=== PATIENT | male | born 1980 | race Caucasian/White ===

== ENCOUNTER → 2018-12-02 11:00 | Outpatient (CLI) | payer OTHER, SELFPAY ==
[2017-12-18 13:27] VITALS: BMI 32.3
--- NOTE | 2018-12-02 11:06 | RAD_ITS ---
STUDY: X-RAY - ABDOMEN/PELVIS REASON FOR EXAM: Male, 38 years old. Abdominal pain. TECHNIQUE: AP supine and upright views of the abdomen and pelvis. COMPARISON: None. FINDINGS: Normal visualized lung bases. There is an unremarkable bowel gas pattern. Air and feces are seen throughout a nondistended colon. There is no small bowel dilatation. There is no demonstrated free abdominal air. The visualized liver, spleen and kidneys are grossly normal in size and morphology. There is no evidence of organomegaly or suspicious calcifications. Normal soft tissue structures. Normal visualized osseous structures. RAD/Abd Inc Decub and/or Erect IMPRESSION: Normal x-ray examination of the abdomen and pelvis. Electronically Signed: Rip Aguirre DO at 19:57 EST Tel [phone], Service support ,
[2018-12-02 12:56] LABS: Absolute Lymphocyte Count 2.78 X10^3/ul (0.83-4.51); Absolute Neutrophil Count 5.6 X10^3/uL (2.0-7.7); Basophil# 0.04 X10^3/uL; Basophil% 0.4 % (0-1); Eosinophils% 1.1 % (0-5); Hematocrit 47.4 % (40-54); Hemoglobin 15.7 g/dl (13.0-16.5); Lymphocyte # 2.78 X10^3/ul (4.0); Lymphocyte % 30.3 % (19-41); Mean Corp Hgb Conc 33.1 g/gl (32-36); Mean Corpuscular Volume 84.5 fL (80-94); Mean Platelet Vol. 9.7 fl (6.2-12.0); Monocyte# 0.71 X10^3/uL; Monocyte% 7.7 % (0-10); Neutrophil # 5.55 X10^3/uL (2.7-7.7); Neutrophil % 60.4 % (47-70); Platelet Count 320 K/mm3 (150-450); RBC Distribution Width CV 13.5 % (11.6-14.6); RBC Distribution Width SD 41.3 fl (35.1-43.9); Red Blood Count 5.61 M/mm3 (4.6-6.2); White Blood Count 9.2 K/mm3 (4.4-11.0)
[2018-12-02 12:58] LABS: POSITIVE COUNT NO; POSITIVE DIFFERENTIAL NO; POSITIVE MORPHOLOGY NO
[2018-12-02 13:03] LABS: ALB/GLOB Ratio 1.2 RATIO (0.9-2.4); AST(SGOT) 16 U/L (15-37); Alanine Aminotransfer ALT/SGPT 47 U/L (16-61); Albumin, Serum 4.3 g/dL (3.2-5.0); Alkaline Phosphatase 65 U/L (45-117); Anion Gap 9 (5-15); BUN 20 mg/dL (7-18); BUN/Creat Ratio 20.9 RATIO (10-20); Calcium,Total 9.7 mg/dL (8.5-10.1); Chloride 107 mmol/L (98-107); Creatinine, Serum 0.96 mg/dL (0.70-1.30); EST Glomerular Filtration Rate 93 mL/min (>60); Est Glom Filt Rate - Afr Amer 112 mL/min (>60); Globulin 3.5 g/dL (2.2-4.2); Glucose 95 mg/dL (74-106); Potassium 4.5 mmol/L (3.5-5.1); Protein, Total 7.8 g/dL (6.4-8.2); Sodium Level 142 mmol/L (136-145)
== END ==
PROVIDERS: Family Provider Family Medicine; PCP Family Medicine; Referring Provider Family Medicine; Visit Provider Family Medicine
DX: R10.9 Unspecified abdominal pain (principal)
CPT/HCPCS: 36415; 74019; 80053; 85025

== ENCOUNTER → 2018-12-13 09:20 | Outpatient (CLI) | payer OTHER, SELFPAY ==
[2018-12-13 08:33] VITALS: BMI 31.9
[2018-12-13 10:17] LABS: AST(SGOT) 13 U/L (15-37); Alanine Aminotransfer ALT/SGPT 38 U/L (16-61); Albumin, Serum 4.2 g/dL (3.2-5.0); Alkaline Phosphatase 63 U/L (45-117); Bilirubin, Direct 0.14 mg/dL (0.00-0.30); Cholesterol 166 mg/dL (200); Globulin 3.5 g/dL (2.2-4.2); High Density Lipoprotein 40 mg/dL; Protein, Total 7.7 g/dL (6.4-8.2); Triglycerides 112 mg/dL; Very Low Density Lipoprotein 22 mg/dL (5-40)
== END ==
PROVIDERS: Family Provider Family Medicine; PCP Family Medicine; Referring Provider Internal Medicine Cardiovascular Disease; Visit Provider Internal Medicine Cardiovascular Disease
DX: I45.6 Pre-excitation syndrome (principal); I48.0 Paroxysmal atrial fibrillation; I10 Essential (primary) hypertension
CPT/HCPCS: 36415; 80061; 80076

== ENCOUNTER → 2020-12-03 07:54 | Outpatient (CLI) | payer OTHER, SELFPAY ==
[2019-12-16 09:24] VITALS: BMI 31.2
[2020-12-03 10:23] LABS: Hematocrit 46.8 % (40-54); Hemoglobin 15.2 g/dL (13.0-16.5); Mean Corp Hgb Conc 32.5 g/dL (32-36); Mean Corpuscular Hgb 27.4 pg (27.0-32.0); Mean Corpuscular Volume 84.5 fL (80-94); Mean Platelet Vol. 10.7 fl (6.2-12.0); Platelet Count 233 K/mm3 (150-450); RBC Distribution Width CV 13.6 % (11.6-14.6); RBC Distribution Width SD 42.7 fl (35.1-43.9); Red Blood Count 5.54 M/mm3 (4.6-6.2); White Blood Count 8.7 K/mm3 (4.4-11.0)
[2020-12-03 10:50] LABS: Anion Gap 10 (5-15); BUN 19 mg/dL (7-18); BUN/Creat Ratio 18.1 RATIO (10-20); Calcium,Total 9.2 mg/dL (8.5-10.1); Chloride 105 mmol/L (98-107); Creatinine, Serum 1.05 mg/dL (0.70-1.30); EST Glomerular Filtration Rate 82 mL/min (>60); Est Glom Filt Rate - Afr Amer 100 mL/min (>60); Glucose 109 mg/dL (74-106); Sodium Level 142 mmol/L (136-145); Thyroid Stim Hormone (TSH) 1.64 uIU/mL (0.358-3.74)
== END ==
PROVIDERS: PCP Family Medicine; Referring Provider Family Medicine; Visit Provider Family Medicine
DX: N52.9 Male erectile dysfunction, unspecified (principal)
CPT/HCPCS: 36415; 80048; 84403; 84443; 85027

== ENCOUNTER → 2021-01-25 09:18 | Outpatient (CLI) | payer SELFPAY ==
[2021-01-25 08:38] VITALS: BMI 32.1
== END ==
PROVIDERS: PCP Family Medicine; Referring Provider Family Medicine; Visit Provider Family Medicine
DX: R79.89 Other specified abnormal findings of blood chemistry (principal)
CPT/HCPCS: 36415; 84402; 84403

== ENCOUNTER → 2021-02-15 11:08 | Outpatient (CLI) | payer OTHER, SELFPAY ==
[2021-01-25 08:38] VITALS: BMI 32.1
[2021-02-22 15:07] LABS: Testosterone Free 12.3 pg/mL (6.8-21.5)
== END ==
PROVIDERS: PCP Family Medicine; Referring Provider Family Medicine; Visit Provider Family Medicine
DX: R79.89 Other specified abnormal findings of blood chemistry (principal)
CPT/HCPCS: 36415; 84402; 84403

== ENCOUNTER → 2022-01-27 | Outpatient (CLI) | payer OTHER, SELFPAY ==
[2022-01-27 10:10] LABS: Hematocrit 45.8 % (40-54); Hemoglobin 15.8 g/dL (13.0-16.5); Mean Corp Hgb Conc 34.5 g/dL (32-36); Mean Corpuscular Hgb 28.7 pg (27.0-32.0); Mean Corpuscular Volume 83.3 fL (80-94); Mean Platelet Vol. 9.8 fl (6.2-12.0); Platelet Count 277 K/mm3 (150-450); RBC Distribution Width CV 13.3 % (11.6-14.6); RBC Distribution Width SD 40.9 fl (35.1-43.9); White Blood Count 7.7 K/mm3 (4.4-11.0)
[2022-01-27 10:28] LABS: ALB/GLOB Ratio 1.1 RATIO (0.9-2.4); AST(SGOT) 17 U/L (15-37); Alanine Aminotransfer ALT/SGPT 53 U/L (16-61); Albumin, Serum 4.1 g/dL (3.2-5.0); Alkaline Phosphatase 56 U/L (45-117); Anion Gap 5 (5-15); BUN 29 mg/dL (7-18); BUN/Creat Ratio 28.4 RATIO (10-20); Calcium,Total 9.3 mg/dL (8.5-10.1); Chloride 109 mmol/L (98-107); Cholesterol 207 mg/dL (200); Creatinine, Serum 1.02 mg/dL (0.70-1.30); EST Glomerular Filtration Rate 85 mL/min (>60); Est Glom Filt Rate - Afr Amer 102 mL/min (>60); Globulin 3.6 g/dL (2.2-4.2); Glucose 106 mg/dL (74-106); High Density Lipoprotein 41 mg/dL; Potassium 4.1 mmol/L (3.5-5.1); Protein, Total 7.7 g/dL (6.4-8.2); Sodium Level 139 mmol/L (136-145); Triglycerides 210 mg/dL; Very Low Density Lipoprotein 42 mg/dL (5-40)
== END | disposition home or self-care (01) ==
PROVIDERS: PCP Family Medicine; Referring Provider Nurse Practitioner Family; Visit Provider Nurse Practitioner Family
DX: Z00.00 Encounter for general adult medical examination without abnormal findings (principal)
CPT/HCPCS: 36415; 80053; 80061; 85027

== ENCOUNTER → 2022-10-17 | Outpatient (CLI) | payer BC, SELFPAY | END | disposition home or self-care (01) | PROVIDERS: PCP Family Medicine; Visit Provider Family Medicine | DX: L05.01 Pilonidal cyst with abscess (principal) | CPT/HCPCS: 87070; 87077; 87205 ==

== ENCOUNTER 2022-11-15 19:18 | Observation (INO) | payer BC, SELFPAY ==
[2022-11-15 19:19] VITALS: BP 163/122; PULSE 103; RESP 16; TEMP 36.6; O2SAT 99; BMI 33.0
--- NOTE | 2022-11-15 19:35 | CT_ITS ---
INDICATION: ABD bloating EXAMINATION: CT ABDOMEN AND PELVIS WITH CONTRAST - CT Abdomen And Pelvis W/ Contrast Injection TECHNIQUE: Helically acquired images were obtained of the abdomen and pelvis following IV contrast. A radiation dose optimization technique was used for this scan. IV Contrast dosage and agent: 98 mL Isovue-370 Oral contrast: None. COMPARISON: None. FINDINGS: LOWER CHEST: Lung bases are clear. No cardiomegaly or pericardial effusion. LIVER: Homogeneous. No focal mass. GALLBLADDER AND BILIARY TREE: No calcified gallstones. No gallbladder distension or wall edema. No intra- or extrahepatic biliary ductal dilation. PANCREAS: No focal cystic or solid mass. SPLEEN: Normal size without focal cystic or solid mass. ADRENAL GLANDS: No nodules. KIDNEYS AND URETERS: Normal renal size and position. No hydronephrosis. PERITONEUM: No ascites or free air. No other fluid collection. BOWEL: No evidence of acute appendicitis. Diffuse small bowel distention up to at least 5.4 cm in caliber. Right abdominal transition point candidate (series 2, image 58; series 601, image 37; series 602, image 66). No focal inflammatory change. LYMPH NODES: Innumerable prominent lymph nodes throughout the mesentery. VESSELS: Aorta is non-dilated. URINARY BLADDER: Unremarkable. REPRODUCTIVE ORGANS: No pelvic masses. ABDOMINAL WALL: Small fat-containing umbilical hernia. BONES: Lateral sacroiliac joint arthrosis. CT/Abdomen/Pelvis W IV Cont ONLY IMPRESSION: Small bowel obstruction with transition point candidate in the abdomen. Reactive mesenteric lymph nodes. Electronically Signed: Dario Vazquez MD at 20:19 EST ,
--- NOTE | 2022-11-15 19:37 | EDS_ITS ---
HPI HPI - GI History of Present Illness Chief Complaint: Abd Pain Detail of Chief Complaint: Diarrhea and abdominal bloating. Informant: patient Abdominal Pain/Flank Pain Onset: Today and Yesterday Timing: Intermittent Quality: Cramping Location: Diffuse Current Severity: Mild Maximum Severity: Mild Worsened by: Nothing Relieved by: Nothing Nausea/Vomiting/Emesis GI Symptom: Negative for Nausea or Vomiting Diarrhea/Melena/Hematochezia GI Symptom: Positive for Diarrhea; Negative for Melena or Hematochezia Onset: Today and Yesterday Severity: 5 episodes of diarrhea yesterday and 5 today. Episodes: 5 Narrative Narrative: 42-year-old male recently had a pilonidal cyst removed about 4 weeks ago. He has been on 2 different antibiotics since that time which he recently stopped. Yesterday he had about 5 episodes of what he calls explosive diarrhea and again today. No nausea or vomiting. No fever. No weight change. No melena or hematemesis. No prior abdominal surgeries. He did have a fever as high as 102. This all started yesterday around 1:00. Prior similar symptoms: No Recent Illness/Hospitalization: No PFSH PFSH Medical History (Updated 11/15/22 @ 20:[address] Garrick Christianson MD) Paroxysmal atrial fibrillation Kwdcc-Olzislcim-Geafy (WPW) syndrome Allergy/AdvReac Type Severity Reaction Status Date / Time No Known Allergies Allergy Verified 11/15/22 19:20 Family History Father CAD (coronary artery disease) Myocardial infarction Uncle CAD (coronary artery disease) Hx AICD Surgical History History of tonsillectomy Social History Smoking Status: Former smoker how long ago did patient quit smokin alcohol intake: current alcohol intake frequency: holidays/special occasions only Alcohol type: beer substance use type: does not use caffeine: No what type of physical activity do you participate in: other details: active lifestyle frequency: daily seatbelt use: always do you feel safe at home: Yes ROS ROS ED ROS Narrative Diarrhea. Fever. Constitutional Constitutional ED: Reports fever(s) ENT ENT ED: Denies ear pain Cardiovascular Cardiovascular: Denies chest pain Respiratory/Chest Respiratory/Chest: Denies cough or dyspnea Gastrointestinal Gastrointestinal: Reports diarrhea; Denies abdominal pain, constipation, melena, nausea or vomiting Genitourinary Genitourinary ED: Denies dysuria or hematuria Musculoskeletal Musculoskeletal: Denies arthralgias Integumentary Denies abscess Neurologic Neurologic: Denies headache(s) Psychiatric Psychiatric: Denies anxiety Endocrine Endocrinology: Denies polydipsia Hematologic/Lymphatic Hematologic/Lymphatic: Denies easy bleeding Allergic/Immunologic Allergic/Immunologic ED: Denies mouth swelling or tongue swelling EXAM Physical Exam Narrative Exam Narrative: 22-year-old male no acute distress. Vital signs stable afebrile. Initial blood pressure elevated 163 122 that will be rechecked. He does not look septic or toxic. He is no acute distress. He does not look significantly dehydrated. H EENT exam unremarkable. Moist membranes. Neck nontender lymphadenopathy. Lungs clear to auscultation. Heart regular rhythm rate about 100 no murmur. Abdomen soft nondistended normal bowel sounds no peritoneal signs. No organomegaly or masses. No distention. No signs of obstruction. Both right upper and right lower quadrant unremarkable. No hernias. Having all 4 ex tremities. Nontender no edema. Back nontender. Neurologic exam is normal. Const Vital Signs: 11/15/22 19:19 Temperature 97.8 F Temperature Source Temporal Pulse Rate 103 H Respiratory Rate 16 Blood Pressure 163/122 H Blood Pressure Mean 135 Pulse Ox 99 Oxygen Delivery Method Room Air Positive well nourished, well developed and obese; Negative for cachectic, contractures or unkempt General Appearance ED: well developed and NAD; Negative for unkempt, cachectic, contractures or pallor Nutritional Appearance: obese; Negative for cachectic HEENT Reports moist mucous membranes; Denies dry mucous membranes normocephalic and atraumatic; Negative for trauma or tenderness Mouth ED: No dry mucous membranes Mouth: No dry mucous membranes Eyes EOMs intact bilaterally General Eye ED: Negative for pale conjunctiva or scleral icterus Neck no lymphadenopathy, supple and no JVD General: Negative for tenderness Carotids: Negative for other Lymph Lymphatic: Negative for other Resp normal respiratory effort and clear to auscultation bilaterally Effort and Inspection: Negative for respiratory distress or retractions Auscultation: Negative for rales, rhonchi or wheezes Cardio regular rate, regular rhythm, S1 normal heart sound, S2 normal heart sound and no murmurs Rate: Negative for bradycardia or tachycardic Rhythm: Negative for abnormal rhythm GI non-tender, non-distended and no masses Inspection: Negative for abdominal distention Palpation: soft; Negative for tender, guarding, rigid, hepatomegaly, splenomegaly, hernia, mass, pulsatile mass or rebound tenderness present Back/Spine no CVA tenderness General Back: Negative for CVA tenderness Cervical Spine: Negative for cervical spine tenderness Thoracic Spine / Upper Back: Negative for thoracic spinal tenderness Lumbar Spine / Lower Back: Negative for lumbar spinal tenderness Coccyx: Negative for other Extremity full ROM General Extremety ED: Negative for edema or tenderness General Extremity: Negative for edema Neuro CN's II-XII intact bilaterally and moves all extremities Sensorium / Orientation: alert, oriented to person, oriented to place and oriented to time; Negative for orientation impaired, confused, lethargic or stuporous Motor Exam: strength 5/5 throughout Psych mental status grossly normal and thought process normal Appearance: Negative for unkempt Attitude: No agitated Mood & Affect: Negative for depressed Skin no wounds General Skin Exam: Negative for jaundice or pallor Lesions: no lesions Rashes: no rashes Trauma: Negative for abrasion Nails: Negative for discolored MDM MDM MDM Narrative Medical decision making narrative: 42-year-old male with diarrhea after being on antibiotics for 3 weeks or so. He only had 5 episodes of yesterday and today. Clinically does not sound like C. difficile. Is also had some bloating. CAT scan and labs are being obtained. He did not need anything for pain or nausea. He will be given IV fluids. Repeat exam at 8:45 PM. Patient doing well. Abdomen benign. He has had no nausea or vomiting. He had no diarrhea since been in the emergency department. He has unremarkable labs. He and I went over his CAT scan. I spoke to the general surgeon on-call Dr. Ashely Penaloza. At this time there is nothing she will need to do surgery on. I will speak to the hospitalist about admission and Dr. Penaloza can be involved as a eligibility consultant. Lab Data Attestation: I reviewed the patient's lab results. Lab results narrative: CBC shows white count 9.4. H&H 15.6 and 47. Platelets 255. CAT scan shows a small bowel obstruction as read by the radiologist and reviewed by me. CMP shows a gap of 7. Normal BUN of 18 creatinine of 1. Glucose 118. Liver enzymes normal. Lipase normal at 153. Labs: Laboratory Results - last 24 hr 11/15/22 11/15/22 19:35 19:35 WBC 9.4 RBC 5.55 Hgb 15.6 Hct 47.0 MCV 84.7 MCH 28.1 MCHC 33.2 RDW Std Deviation 41.0 RDW Coeff of Aleksandr 13.3 Plt Count 255 MPV 9.2 Immature Gran % (Auto) 0.300 Neut % (Auto) 68.9 Lymph % (Auto) 19.4 [place] % (Auto) 10.1 H Eos % (Auto) 1.1 Baso % (Auto) 0.2 Absolute Neuts (auto) 6.5 Absolute Lymphs (auto) 1.83 Nucleated RBC % 0 Sodium 141 Potassium 3.9 Chloride 109 H Carbon Dioxide 25.0 Anion Gap 7 BUN 18 Creatinine 1.08 Estim Creat Clear Calc 98.64 Est GFR (MDRD) Af Amer 96 Est GFR (MDRD) Non-Af 79 BUN/Creatinine Ratio 16.7 Glucose 118 H Calcium 9.1 Total Bilirubin 0.60 AST 15 ALT 44 Alkaline Phosphatase 57 Total Protein 7.6 Albumin 3.8 Globulin 3.8 Albumin/Globulin Ratio 1.0 Lipase 153 Radiography Diagnostic Testing: Clinical Impression(s) from Imaging Studies Abdomen/Pelvis CT 11/15/22 19:35 IMPRESSION: Small bowel obstruction with transition point candidate in the abdomen. Reactive mesenteric lymph nodes. Electronically Signed: Dario Vazquez MD at 20:19 EST , Discharge Plan Triage Chief Complaint: Abd Pain ED Provider: Garrick Christianson Dx/Rx/DC Orders Clinical Impression: Partial obstruction of small intestine, Diarrhea, History of Pckvq-Kzcdzofrz-Qtwin (WPW) syndrome Primary Care Provider: Clark Cohen Referrals: Clark Cohen MD [Primary Care Provider] - Disposition Disposition: Acute Care Hospital [facility]
[2022-11-15] MEDS: 0.9% Normal Saline 1,000 ML 1000 ML IV (19:40)
[2022-11-15 19:54] LABS: Absolute Lymphocyte Count 1.83 X10^3/uL (0.83-4.51); Absolute Neutrophil Count 6.5 X10^3/uL (2.0-7.7); Basophil# 0.02 X10^3/uL; Basophil% 0.2 % (0-1); Eosinophils% 1.1 % (0-5); Hemoglobin 15.6 g/dL (13.0-16.5); Lymphocyte # 1.83 X10^3/ul (0.83-4.51); Lymphocyte % 19.4 % (19-41); Mean Corp Hgb Conc 33.2 g/dL (32-36); Mean Corpuscular Hgb 28.1 pg (27.0-32.0); Mean Corpuscular Volume 84.7 fL (80-94); Mean Platelet Vol. 9.2 fl (6.2-12.0); Monocyte# 0.95 X10^3/uL; Monocyte% 10.1 % (0-10); NRBC Flagged by Analyzer 0 % (0-5); Neutrophil # 6.48 X10^3/uL (2.7-7.7); Neutrophil % 68.9 % (47-70); Platelet Count 255 K/mm3 (150-450); RBC Distribution Width CV 13.3 % (11.6-14.6); Red Blood Count 5.55 M/mm3 (4.6-6.2); White Blood Count 9.4 K/mm3 (4.4-11.0)
[2022-11-15 20:28] LABS: AST(SGOT) 15 U/L (15-37); Alanine Aminotransfer ALT/SGPT 44 U/L (16-61); Albumin, Serum 3.8 g/dL (3.2-5.0); Alkaline Phosphatase 57 U/L (45-117); Anion Gap 7 (5-15); BUN 18 mg/dL (7-18); BUN/Creat Ratio 16.7 RATIO (10-20); Calcium,Total 9.1 mg/dL (8.5-10.1); Chloride 109 mmol/L (98-107); Creatinine, Serum 1.08 mg/dL (0.70-1.30); EST Glomerular Filtration Rate 79 mL/min (>60); Est Glom Filt Rate - Afr Amer 96 mL/min (>60); Estimated Creatinine Clearance 98.64 ml/min; Globulin 3.8 g/dL (2.2-4.2); Glucose 118 mg/dL (74-106); Lipase 153 U/L (73-393); Potassium 3.9 mmol/L (3.5-5.1); Protein, Total 7.6 g/dL (6.4-8.2); Sodium Level 141 mmol/L (136-145)
[2022-11-15 21:35] VITALS: BP 133/86; PULSE 78; RESP 18; TEMP 36.7; O2SAT 100
--- NOTE | 2022-11-15 21:41 | PCM.HP.STD ---
[facility] - General General Date of Admission: 11/15/22 Date of Service: 11/15/22 Chief Complaint: Diarrhea HPI Narrative EMILIANO MANN, is a 42 M with a significant history of Kwojq-Srwtsxffi-Fqlrd syndrome status post ablation who presents to the emergency department with diarrhea. The patient reports multiple loose stools yesterday the day before presentation. Associated with symptoms as abdominal bloating, abdominal distention and abdominal pain. He reports diffuse abdominal pain 5 out of 10. The pain is described as dull and aching. The pain is episodic. The pain aggravates with movement and the pain improves with rest. He denies anorexia. Indeed he has good appetite. Patient denies any nausea or vomiting. On the day of presentation he ate breakfast and lunch and was getting ready to prepare dinner before he was urged by family to come to the ED. Because of urging from the family he came to the emergency department for evaluation. Of note patient reports that for 4 days in a row he ate some Guacamole that he bought from [employer]. Of note his daughter also ate same Guacamole and had some mild diarrhea on the day of patient's presentation. However his daughter attributes her diarrhea to food that she ate when she went for bowling. Because CT of abdomen and pelvis showed small bowel obstruction with a transition point emerged department doctor discussed the case with the general surgeon and recommendation was that patient stays at the hospital for further evaluation. [facility] Medical History Paroxysmal atrial fibrillation Dpjls-Dgpbfrvau-Ibqwq (WPW) syndrome Allergy/AdvReac Type Severity Reaction Status Date / Time No Known Allergies Allergy Verified 11/15/22 22:20 Family History Father CAD (coronary artery disease) Myocardial infarction Uncle CAD (coronary artery disease) Hx AICD Surgical History History of tonsillectomy Social History Smoking Status: Former smoker how long ago did patient quit smokin alcohol intake: current alcohol intake frequency: holidays/special occasions only Alcohol type: beer substance use type: does not use caffeine: No what type of physical activity do you participate in: other details: active lifestyle frequency: daily seatbelt use: always do you feel safe at home: Yes ROS ROS Narrative Pertinent positives and pertinent negatives as noted in HPI. All other systems were reviewed and are negative Vital Signs Vital Signs Vital Signs: 11/15/22 19:19 11/15/22 21:35 Temperature 97.8 F 98.0 F Temperature Source Temporal Temporal Pulse Rate 103 H 78 Respiratory Rate 16 18 Blood Pressure 163/122 H 133/86 H Blood Pressure Mean 135 101 Pulse Ox 99 100 Oxygen Delivery Method Room Air Room Air Weight Weight: 113.398 kg Body Mass Index (BMI) 33.0 Physical Exam Narrative Physical exam: General: Well-nourished, well-developed. Head: Normocephalic, atraumatic, no tenderness Eyes: Vision is grossly intact. EOMI ENT, no trauma, moist mucous membranes, no rhinorrhea Neck: Nontender, No thyromegaly. CVS: Regular rate and rhythm. S1-S2 present. No murmur, gallop or rub. Respiratory : clear to auscultation bilaterally, chest wall nontender, no wheezing Abdomen: Soft, nontender, nondistended, normal bowel sounds, no masses : Deferred Back: Nontender, no CVA tenderness, no midline spinal tenderness, deformities, step-offs Extremities: Nontender full range of motion, no trauma Skin: Normal color, no trauma, abrasions Neuro: Alert, oriented, cranial nerves II through XII grossly intact. Psychiatry: Normal mood. Normal affect. Not depressed. Not anxious. Results Lab / Micro Data Result Diagrams: 11/15/22 19:35 11/15/22 19:35 Labs: Laboratory Results - last 24 hr 11/15/22 19:35: WBC 9.4, RBC 5.55, Hgb 15.6, Hct 47.0, MCV 84.7, MCH 28.1, MCHC 33.2, RDW Std Deviation 41.0, RDW Coeff of Aleksandr 13.3, Plt Count 255, MPV 9.2, Immature Gran % (Auto) 0.300, Neut % (Auto) 68.9, Lymph % (Auto) 19.4, [place] % (Auto) 10.1 H, Eos % (Auto) 1.1, Baso % (Auto) 0.2, Absolute Neuts (auto) 6.5, Absolute Lymphs (auto) 1.83, Nucleated RBC % 0 11/15/22 19:35: Sodium 141, Potassium 3.9, Chloride 109 H, Carbon Dioxide 25.0, Anion Gap 7, BUN 18, Creatinine 1.08, Estim Creat Clear Calc 98.64, Est GFR (MDRD) Af Amer 96, Est GFR (MDRD) Non-Af 79, BUN/Creatinine Ratio 16.7, Glucose 118 H, Calcium 9.1, Total Bilirubin 0.60, AST 15, ALT 44, Alkaline Phosphatase 57, Total Protein 7.6, Albumin 3.8, Globulin 3.8, Albumin/Globulin Ratio 1.0, Lipase 153 Radiology Impression Abdomen/Pelvis CT 11/15/22 19:35 IMPRESSION: Small bowel obstruction with transition point candidate in the abdomen. Reactive mesenteric lymph nodes. Electronically Signed: Dario Vazquez MD at 20:19 EST , Assessment & Plan Assessment/Plan (1) Partial obstruction of small intestine: (2) Diarrhea: (3) Essential hypertension: PLAN: Plan Partial small obstruction CT of abdomen pelvis was independently interpreted. I agree with with radiologist interpretation of small bowel distention. Also in addition radiologist reports a transition point for obstruction. Patient with normal white count. Mild monocytosis. BMP is not impressive. Supportive treatment with IV fluids. Patient with no nausea or vomiting. However we will keep patient n.p.o. General surgery consult. Trend CBC and BMP. Enteritis Likely secondary to food poisoning. Supportive treatment with IV fluids as above. Essential hypertension Blood pressure is not within goal. Not on any home medication. Trend blood pressures. DVT prophylaxis: SCDs ordered. Charges/Coding Visit Charges Inpatient E&M: 74139 Init Hosp L2
[2022-11-15 22:19] VITALS: BP 148/96; PULSE 76; RESP 16; TEMP 37.3; O2SAT 98
[2022-11-15 22:21] VITALS: BMI 33.0
[2022-11-15] MEDS: 0.9% Saline Lock 10 ML Syringe IV (23:22)
[2022-11-15] MEDS: 0.9% Normal Saline 1,000 ML 75 ML IV (23:23)
[2022-11-16 03:19] VITALS: BP 131/76; PULSE 75; RESP 18; TEMP 36.8; O2SAT 97
[2022-11-16 06:07] LABS: Absolute Lymphocyte Count 1.87 X10^3/uL (0.83-4.51); Absolute Neutrophil Count 5.1 X10^3/uL (2.0-7.7); Basophil# 0.02 X10^3/uL; Basophil% 0.2 % (0-1); Eosinophil# 0.08 X10^3/uL; Hematocrit 43.4 % (40-54); Hemoglobin 14.6 g/dL (13.0-16.5); Lymphocyte # 1.87 X10^3/ul (0.83-4.51); Lymphocyte % 22.9 % (19-41); Mean Corp Hgb Conc 33.6 g/dL (32-36); Mean Corpuscular Hgb 28.3 pg (27.0-32.0); Mean Corpuscular Volume 84.1 fL (80-94); Monocyte% 13.5 % (0-10); NRBC Flagged by Analyzer 0 % (0-5); Neutrophil # 5.08 X10^3/uL (2.7-7.7); Neutrophil % 62.2 % (47-70); Platelet Count 230 K/mm3 (150-450); RBC Distribution Width CV 13.4 % (11.6-14.6); RBC Distribution Width SD 41.9 fl (35.1-43.9); Red Blood Count 5.16 M/mm3 (4.6-6.2); White Blood Count 8.2 K/mm3 (4.4-11.0)
[2022-11-16 06:33] LABS: Anion Gap 6 (5-15); BUN 14 mg/dL (7-18); BUN/Creat Ratio 14.9 RATIO (10-20); Calcium,Total 8.9 mg/dL (8.5-10.1); Chloride 109 mmol/L (98-107); Creatinine, Serum 0.94 mg/dL (0.70-1.30); EST Glomerular Filtration Rate 93 mL/min (>60); Est Glom Filt Rate - Afr Amer 112 mL/min (>60); Estimated Creatinine Clearance 113.33 ml/min; Glucose 108 mg/dL (74-106); Potassium 3.9 mmol/L (3.5-5.1); Sodium Level 141 mmol/L (136-145)
[2022-11-16 08:02] VITALS: BP 146/84; PULSE 76; RESP 18; TEMP 37.3; O2SAT 96
--- NOTE | 2022-11-16 09:43 | CON.PCM.SX_ITS ---
Assessment & Plan Assessment/Plan (1) Partial obstruction of small intestine: PLAN: see below (2) Diarrhea: PLAN: see below PLAN: Plan Patient clinically does not have bowel obstruction, suspect food poisoning I have recommended IV hydration and liquid diet until symptoms resolved Patient wishes to go home and have symptoms resolve at home. I have counseled patient to return to hospital/clinic if worsening signs/symptoms. Patient will be discharged home by hospitalist service HPI Consult Data Date of Consult: 11/16/22 HPI Narrative Reason for Consultation: abdominal pain HPI Narrative: I was asked to see patient for Dr. Rufino Schwartz in consultation for this patient with abdominal pain EMILIANO MANN, is a 42 M who presents abdominal pain for about a day. He also has noted multiple bouts of diarrhea - loose watery stools. He does remember eating guacamole that he purchased at a local store. He denies nausea/emesis. He presented with a normal WBC and LFTs to the [facility] ED. He was found on CT scan to have possible small bowel obstruction with distended proximal loops of small bowel. He states that he has been passing flatus and he has minimal abdominal pain this morning. [facility] Medical History Paroxysmal atrial fibrillation Qqutf-Qdzfbrtbm-Bmjgu (WPW) syndrome Allergy/AdvReac Type Severity Reaction Status Date / Time No Known Allergies Allergy Verified 11/15/22 22:20 Family History Father CAD (coronary artery disease) Myocardial infarction Uncle CAD (coronary artery disease) Hx AICD Surgical History History of tonsillectomy Social History Smoking Status: Former smoker how long ago did patient quit smokin alcohol intake: current alcohol intake frequency: holidays/special occasions only Alcohol type: beer substance use type: does not use caffeine: No what type of physical activity do you participate in: other details: active lifestyle frequency: daily seatbelt use: always do you feel safe at home: Yes ROS Constitutional Constitutional: Denies fever(s) Eyes Eyes: Denies blurry vision Cardiovascular Cardiovascular: Denies chest pain at rest Respiratory/Chest Respiratory/Chest: Denies shortness of breath at rest Gastrointestinal Gastrointestinal: Reports diarrhea Musculoskeletal Musculoskeletal: Denies abnormal gait Integumentary Integumentary: Denies jaundice Neurologic Neurologic: Denies focal weakness Physical Exam Const alert and oriented x3 General Appearance: cooperative HEENT normocephalic Eyes conjunctivae normal Neck supple Resp normal respiratory effort Effort and Inspection: able to speak in complete sentences GI GI Narrative: abdomen is soft and benign Extremity normal to inspection Medical Records Data Attestation: I reviewed the patient's medical records Lab / Micro Data Attestation: I reviewed the patient's lab results. Result Diagrams: 11/16/22 05:33 11/16/22 05:33 Labs: Laboratory Results - last 24 hr 11/15/22 19:35: WBC 9.4, RBC 5.55, Hgb 15.6, Hct 47.0, MCV 84.7, MCH 28.1, MCHC 33.2, RDW Std Deviation 41.0, RDW Coeff of Aleksandr 13.3, Plt Count 255, MPV 9.2, Immature Gran % (Auto) 0.300, Neut % (Auto) 68.9, Lymph % (Auto) 19.4, [place] % (Auto) 10.1 H, Eos % (Auto) 1.1, Baso % (Auto) 0.2, Absolute Neuts (auto) 6.5, Absolute Lymphs (auto) 1.83, Nucleated RBC % 0 11/15/22 19:35: Sodium 141, Potassium 3.9, Chloride 109 H, Carbon Dioxide 25.0, Anion Gap 7, BUN 18, Creatinine 1.08, Estim Creat Clear Calc 98.64, Est GFR (MDRD) Af Amer 96, Est GFR (MDRD) Non-Af 79, BUN/Creatinine Ratio 16.7, Glucose 118 H, Calcium 9.1, Total Bilirubin 0.60, AST 15, ALT 44, Alkaline Phosphatase 57, Total Protein 7.6, Albumin 3.8, Globulin 3.8, Albumin/Globulin Ratio 1.0, Lipase 153 11/16/22 05:33: WBC 8.2, RBC 5.16, Hgb 14.6, Hct 43.4, MCV 84.1, MCH 28.3, MCHC 33.6, RDW Std Deviation 41.9, RDW Coeff of Aleksandr 13.4, Plt Count 230, MPV 9.0, Immature Gran % (Auto) 0.200, Neut % (Auto) 62.2, Lymph % (Auto) 22.9, [place] % (Auto) 13.5 H, Eos % (Auto) 1.0, Baso % (Auto) 0.2, Absolute Neuts (auto) 5.1, Absolute Lymphs (auto) 1.87, Nucleated RBC % 0 11/16/22 05:33: Sodium 141, Potassium 3.9, Chloride 109 H, Carbon Dioxide 26.0, Anion Gap 6, BUN 14, Creatinine 0.94, Estim Creat Clear Calc 113.33, Est GFR (MDRD) Af Amer 112, Est GFR (MDRD) Non-Af 93, BUN/Creatinine Ratio 14.9, Glucose 108 H, Calcium 8.9 Radiology Impression Abdomen/Pelvis CT 11/15/22 19:35 IMPRESSION: Small bowel obstruction with transition point candidate in the abdomen. Reactive mesenteric lymph nodes. Electronically Signed: Dario Vazquez MD at 20:19 EST , ADDENDUM: 11/15/222201 IMPRESSION: undefined
--- NOTE | 2022-11-16 09:59 | DCINST_ITS ---
Discharge Instructions Diet Discharge Diet: No restrictions Activity Discharge Activity: Return to Normal Activity Weight Bearing Status: Full weight bearing Follow Up Care Test Results: Test results from this visit will be discussed in further detail at your follow- up appointment, if applicable. Discharge Plan Admission Admit Date/Time: 11/15/22 21:41 Primary Reason for Your Visit: gastroenteritis Attending Provider: Rufino Schwartz Primary Care Provider: Clark Cohen Consulting Providers: Pool Shea ; Ashely Penaloza Discharge Orders/Prescriptions Referrals / Follow Up: Clark Cohen MD [Primary Care Provider] - Within 2 Weeks Disposition Disposition (needs filled in before D/C Order can be placed): Home, Self Care
--- NOTE | 2022-11-16 10:07 | PCM.DC.SUM ---
Providers Date of Admission: 11/15/22 Date of Discharge: 11/16/22 Primary Care Physician: Dr. Clark Cohen MD Consultations 11/15/22 22:12 Consult: General Surgery Routine Consulting Provider: Ashely Penaloza Reason for Consult: Possible sbo EMERGENT Consult: No MD Notified: Yes Date Notified: 11/16/22 Time Notified: 08:08 Method of Notification: Verbal Reason For Visit: ANTIBIOTIC INTOLERANCE Diagnosis Discharge Diagnosis (1) Partial obstruction of small intestine: Status: Acute Code(s): K56.600 - Partial intestinal obstruction, unspecified as to cause (2) Diarrhea: Status: Acute Code(s): R19.7 - Diarrhea, unspecified (3) Essential hypertension: Status: Acute Code(s): I10 - Essential (primary) hypertension Plan 1. Possible viral gastroenteritis versus food poisoning #2 essential hypertension #3 Lpkjj-Qowcksjqt-Djccj syndrome Small bowel obstruction was ruled out Hospital Course Operations None Procedures None Summary of Care Provided Minutes Spent on Discharge: 31 Hospital Course: This 42-year-old white male was seen in the emergency room at [facility] with a chief complaint of diarrhea x24 hours, patient also complained of abdominal bloating distention and generalized abdominal pain. CT of the abdomen pelvis was obtained in the ER which showed a possible small bowel obstruction, general surgery was contacted and this case was discussed with them, patient was admitted to [place] [address] and given IV fluids, patient's symptomology improved during his hospital stay and he was seen by general surgery on 11/16/2022 and felt to be stable for discharge home. It was felt by surgery that the patient possibly had food poisoning. On 11/16/2022, patient was seen and examined: On examination he appeared in good health and spirits. Vital signs as documented. Skin warm and dry and without overt rashes. Neck without JVD, neck was supple, trachea midline, thyroid was normal. Lungs clear bilaterally, normal air movement was noted. Heart exam notable for regular rhythm, normal sounds and absence of murmurs, rubs or gallops. Abdomen unremarkable and without evidence of organomegaly, masses, or abdominal aortic enlargement. Bowel sounds are present, abdomen is not distended. Extremities nonedematous, no cyanosis was noted, no clubbing was noted. Neuro: Cranial nerves II through XII are grossly intact, no focal motor deficits were noted, sensation to light touch and pinprick intact, motor exam 5/5 throughout. Psych: Patient is alert and oriented x3, he does not appear anxious or depressed, he does not appear agitated. Patient appears stable for discharge home on 11/16/2022 in stable condition. Weight / BMI Weight Weight: 113.8 kg Body Mass Index (BMI) 33.0 ABG / Lab / Microbiology Data Result Diagrams: 11/16/22 05:33 11/16/22 05:33 Laboratory: Laboratory Results - last 24 hr 11/15/22 19:35: WBC 9.4, RBC 5.55, Hgb 15.6, Hct 47.0, MCV 84.7, MCH 28.1, MCHC 33.2, RDW Std Deviation 41.0, RDW Coeff of Aleksandr 13.3, Plt Count 255, MPV 9.2, Immature Gran % (Auto) 0.300, Neut % (Auto) 68.9, Lymph % (Auto) 19.4, Nash % (Auto) 10.1 H, Eos % (Auto) 1.1, Baso % (Auto) 0.2, Absolute Neuts (auto) 6.5, Absolute Lymphs (auto) 1.83, Nucleated RBC % 0 11/15/22 19:35: Sodium 141, Potassium 3.9, Chloride 109 H, Carbon Dioxide 25.0, Anion Gap 7, BUN 18, Creatinine 1.08, Estim Creat Clear Calc 98.64, Est GFR (MDRD) Af Amer 96, Est GFR (MDRD) Non-Af 79, BUN/Creatinine Ratio 16.7, Glucose 118 H, Calcium 9.1, Total Bilirubin 0.60, AST 15, ALT 44, Alkaline Phosphatase 57, Total Protein 7.6, Albumin 3.8, Globulin 3.8, Albumin/Globulin Ratio 1.0, Lipase 153 11/16/22 05:33: WBC 8.2, RBC 5.16, Hgb 14.6, Hct 43.4, MCV 84.1, MCH 28.3, MCHC 33.6, RDW Std Deviation 41.9, RDW Coeff of Aleksandr 13.4, Plt Count 230, MPV 9.0, Immature Gran % (Auto) 0.200, Neut % (Auto) 62.2, Lymph % (Auto) 22.9, Nash % (Auto) 13.5 H, Eos % (Auto) 1.0, Baso % (Auto) 0.2, Absolute Neuts (auto) 5.1, Absolute Lymphs (auto) 1.87, Nucleated RBC % 0 11/16/22 05:33: Sodium 141, Potassium 3.9, Chloride 109 H, Carbon Dioxide 26.0, Anion Gap 6, BUN 14, Creatinine 0.94, Estim Creat Clear Calc 113.33, Est GFR (MDRD) Af Amer 112, Est GFR (MDRD) Non-Af 93, BUN/Creatinine Ratio 14.9, Glucose 108 H, Calcium 8.9 Radiography Diagnostic Testing: Radiology Impression Abdomen/Pelvis CT 11/15/22 19:35 IMPRESSION: Small bowel obstruction with transition point candidate in the abdomen. Reactive mesenteric lymph nodes. Electronically Signed: Dario Vazquez MD at 20:19 EST Reading Location ID and State: [facility] / [place] Tel , Service support , ADDENDUM: 11/15/222201 IMPRESSION: undefined D/C Instructions Discharge Diet: No restrictions Weight Bearing Status: Full weight bearing Meaningful Use Info Meaningful Use Diagnoses (Choose all that apply): None applicable Discharge Plan Admission Admit Date/Time: 11/15/22 21:41 Primary Reason for Your Visit: gastroenteritis Attending Provider: Rufino Schwartz Primary Care Provider: Clark Cohen Consulting Providers: Pool Shea ; Ashely Penaloza Discharge Orders/Prescriptions Referrals / Follow Up: Clark Cohen MD [Primary Care Provider] - Within 2 Weeks Disposition Disposition (needs filled in before D/C Order can be placed): Home, Self Care Charges/Coding Visit Charges Inpatient E&M: 84352 Disch Hosp >30min
== END 2022-11-16 10:33 | disposition home or self-care (01) ==
LOC: ED 20:48 → MS3 22:09
PROVIDERS: Admitting Provider Hospitalist; Emergency Provider Emergency Medicine; PCP Family Medicine; Visit Provider Internal Medicine
DX: R19.7 Diarrhea, unspecified (principal); I48.0 Paroxysmal atrial fibrillation; Z87.891 Personal history of nicotine dependence; I10 Essential (primary) hypertension; I45.6 Pre-excitation syndrome
CPT/HCPCS: 36415; 74177; 80048; 80053; 83690; 85025; 96360; 96361; 99221; 99284; J7030; Q9967; A4216; G0378

== ENCOUNTER → 2023-01-19 | Outpatient (CLI) | payer BC, SELFPAY ==
[2023-01-19 10:19] LABS: Hematocrit 47.1 % (40-54); Hemoglobin 15.8 g/dL (13.0-16.5); Mean Corp Hgb Conc 33.5 g/dL (32-36); Mean Corpuscular Hgb 28.4 pg (27.0-32.0); Mean Corpuscular Volume 84.6 fL (80-94); Platelet Count 282 K/mm3 (150-450); RBC Distribution Width CV 13.9 % (11.6-14.6); RBC Distribution Width SD 42.9 fl (35.1-43.9); Red Blood Count 5.57 M/mm3 (4.6-6.2); White Blood Count 8.1 K/mm3 (4.4-11.0)
[2023-01-19 10:33] LABS: Anion Gap 3 (5-15); BUN 26 mg/dL (7-18); BUN/Creat Ratio 23.2 RATIO (10-20); Calcium,Total 9.4 mg/dL (8.5-10.1); Chloride 108 mmol/L (98-107); Cholesterol 210 mg/dL (200); Creatinine, Serum 1.12 mg/dL (0.70-1.30); EST Glomerular Filtration Rate 76 mL/min (>60); Est Glom Filt Rate - Afr Amer 92 mL/min (>60); Glucose 104 mg/dL (74-106); High Density Lipoprotein 50 mg/dL; Potassium 4.1 mmol/L (3.5-5.1); Sodium Level 135 mmol/L (136-145); Triglycerides 125 mg/dL; Very Low Density Lipoprotein 25 mg/dL (5-40)
== END | disposition home or self-care (01) ==
LOC: MFPLAB 08:49
PROVIDERS: PCP Family Medicine; Visit Provider Family Medicine
DX: Z00.00 Encounter for general adult medical examination without abnormal findings (principal); Z13.1 Encounter for screening for diabetes mellitus; Z13.220 Encounter for screening for lipoid disorders; V70.0XXA Driver of bus injured in collision with pedestrian or animal in nontraffic accident, initial encounter
CPT/HCPCS: 36415; 80048; 80061; 85027

== ENCOUNTER → 2023-11-05 | Outpatient (CLI) | payer BC, SELFPAY ==
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
[2023-11-05 16:25] LABS: Absolute Lymphocyte Count 2.37 X10^3/uL (0.83-4.51); Absolute Neutrophil Count 5.7 X10^3/uL (2.0-7.7); Basophil# 0.05 X10^3/uL; Basophil% 0.6 % (0-1); Eosinophil# 0.14 X10^3/uL; Eosinophils% 1.6 % (0-5); Hematocrit 45.3 % (40-54); Hemoglobin 14.9 g/dL (13.0-16.5); Lymphocyte # 2.37 X10^3/ul (0.83-4.51); Lymphocyte % 26.5 % (19-41); Mean Corp Hgb Conc 32.9 g/dL (32-36); Mean Corpuscular Hgb 27.7 pg (27.0-32.0); Mean Corpuscular Volume 84.4 fL (80-94); Mean Platelet Vol. 10.2 fl (6.2-12.0); Monocyte# 0.61 X10^3/uL; Monocyte% 6.8 % (0-10); NRBC Flagged by Analyzer 0 % (0-5); Neutrophil # 5.74 X10^3/uL (2.7-7.7); Neutrophil % 64.3 % (47-70); Platelet Count 275 K/mm3 (150-450); RBC Distribution Width CV 13.5 % (11.6-14.6); RBC Distribution Width SD 41.6 fl (35.1-43.9); Red Blood Count 5.37 M/mm3 (4.6-6.2); White Blood Count 8.9 K/mm3 (4.4-11.0)
[2023-11-05 16:37] LABS: ALB/GLOB Ratio 1.1 RATIO (0.9-2.4); AST(SGOT) 18 U/L (15-37); Alanine Aminotransfer ALT/SGPT 40 U/L (16-61); Alkaline Phosphatase 62 U/L (45-117); Anion Gap 4 (5-15); BUN 21 mg/dL (7-18); BUN/Creat Ratio 21.5 RATIO (10-20); Calcium,Total 9.2 mg/dL (8.5-10.1); Chloride 108 mmol/L (98-107); Cholesterol 200 mg/dL (200); Creatinine, Serum 0.98 mg/dL (0.70-1.30); EST Glomerular Filtration Rate 88 mL/min (>60); Est Glom Filt Rate - Afr Amer 107 mL/min (>60); Globulin 3.5 g/dL (2.2-4.2); Glucose 86 mg/dL (74-106); High Density Lipoprotein 40 mg/dL; PSA,Total - Annual Screen 1.61 ng/mL (0.00-4.00); Potassium 4.1 mmol/L (3.5-5.1); Protein, Total 7.5 g/dL (6.4-8.2); Sodium Level 136 mmol/L (136-145); Triglycerides 167 mg/dL; Very Low Density Lipoprotein 33 mg/dL (5-40)
[2023-11-05 16:42] LABS: Rubella IgG Reactive (Nonreactive)
[2023-11-07 06:12] LABS: Mumps Antibody,IgG 18.9 AU/mL (Immune >10.9); Rubeola IgG Ab > 300.0 AU/mL (Immune >16.4); V-Zoster IgG (Immunity) 1203 index (Immune >165)
== END | disposition home or self-care (01) ==
LOC: MTLAB 12:59
PROVIDERS: PCP Family Medicine; Referring Provider Family Medicine; Visit Provider Family Medicine
DX: Z00.00 Encounter for general adult medical examination without abnormal findings (principal); I10 Essential (primary) hypertension; Z12.5 Encounter for screening for malignant neoplasm of prostate
CPT/HCPCS: 36415; 80053; 80061; 84153; 85025; 86735; 86762; 86765; 86787; G0103

== ENCOUNTER → 2024-03-01 | Outpatient (CLI) | payer BC, SELFPAY ==
--- NOTE | 2024-03-01 07:39 | CT_ITS ---
HISTORY: Left lung nodule. TECHNIQUE: Helically acquired images were obtained of the chest without contrast. A radiation dose optimization technique was used for this scan. 888 images. COMPARISON: CT abdomen 11/15/2022. FINDINGS: LARGE AIRWAYS: Patent. LUNGS: 3 mm perifissural nodules in the right lung on image 58/136. 3 mm left lower lobe nodule posteriorly on image 100. Stable 6 mm left lower lobe juxtapleural oval nodule just above the diaphragm on image 98. PLEURA: No pneumothorax or significant pleural effusion. HEART/PERICARDIUM: Heart within normal limits in size with mild coronary artery calcification. No pericardial effusion. VESSELS: Thoracic aorta nondilated. MEDIASTINUM/JEROD: No pathologically enlarged adenopathy. UPPER ABDOMEN: Unremarkable. BONES: Intact. CT/Chest without Contrast IMPRESSION: No significant interval change in size of 6 mm left lower lobe pulmonary nodule just above the diaphragm. 3 mm bilateral pulmonary nodules. Consider optional [address] follow-up. Electronically Signed: Susie Sanderson MD at 9:03 EDT ,
[2024-03-01 10:14] LABS: Anion Gap 6 (5-15); BUN 21 mg/dL (7-18); BUN/Creat Ratio 19.1 RATIO (10-20); Calcium,Total 9.6 mg/dL (8.5-10.1); Chloride 105 mmol/L (98-107); EST Glomerular Filtration Rate 77 mL/min (>60); Est Glom Filt Rate - Afr Amer 93 mL/min (>60); Glucose 103 mg/dL (74-106); Potassium 3.6 mmol/L (3.5-5.1); Sodium Level 137 mmol/L (136-145)
== END | disposition home or self-care (01) ==
PROVIDERS: PCP Family Medicine; Referring Provider Nurse Practitioner Gerontology; Visit Provider Nurse Practitioner Gerontology
DX: R91.1 Solitary pulmonary nodule (principal); I10 Essential (primary) hypertension
CPT/HCPCS: 36415; 71250; 80048

== ENCOUNTER 2024-06-04 13:49 | Emergency (ER) | payer BC, SELFPAY ==
[2024-06-04 13:51] VITALS: BP 144/86; PULSE 84; RESP 15; TEMP 36.4; O2SAT 99; BMI 33.6
--- NOTE | 2024-06-04 14:34 | RAD_ITS ---
STUDY: X-RAY CHEST REASON FOR EXAM: Male, 43 years old. Pain TECHNIQUE: PA and lateral views of the chest. COMPARISON: None. FINDINGS: The lungs are clear and expanded. There is no demonstrated pleural abnormality. Normal size heart. Normal mediastinum and kavita. Normal visualized pulmonary arteries. Normal visualized aortic arch and descending thoracic aorta. Normal visualized thoracic spine. Normal visualized ribs, clavicles, and shoulders. There is no demonstrated abnormality of the visualized soft tissue structures of the upper abdomen. RAD/Chest PA and Lateral IMPRESSION: Normal x-ray examination of the chest. Electronically Signed: Crispin Perez MD at 15:42 EDT ,
--- NOTE | 2024-06-04 14:34 | EKG12_ITS ---
Test Reason : CP Blood Pressure : / mmHG Vent. Rate : 083 BPM Atrial Rate : 083 BPM P-R Int : 212 ms QRS Dur : 096 ms QT Int : 374 ms P-R-T Axes : 021 008 025 degrees QTc Int : 439 ms Sinus rhythm with 1st degree A-V block with occasional Premature ventricular complexes Otherwise normal ECG Confirmed by GUILLE PUCKETT, OVIDIO ([id number]), editor map BOB COBB ([id number]) on 06/07/2024 8:11:17 AM Referred By: NILS/KANDIS Confirmed By:OVIDIO HAN MD
[2024-06-04 14:45] LABS: Absolute Lymphocyte Count 1.66 X10^3/uL (0.83-4.51); Absolute Neutrophil Count 7.7 X10^3/uL (2.0-7.7); Basophil# 0.03 X10^3/uL; Basophil% 0.3 % (0-1); Eosinophil# 0.05 X10^3/uL; Eosinophils% 0.5 % (0-5); Hematocrit 44.8 % (40-54); Lymphocyte # 1.66 X10^3/ul (0.83-4.51); Lymphocyte % 16.4 % (19-41); Mean Corp Hgb Conc 33.5 g/dL (32-36); Mean Corpuscular Hgb 27.9 pg (27.0-32.0); Mean Corpuscular Volume 83.4 fL (80-94); Mean Platelet Vol. 9.3 fl (6.2-12.0); Monocyte# 0.61 X10^3/uL; NRBC Flagged by Analyzer 0 % (0-5); Neutrophil # 7.73 X10^3/uL (2.7-7.7); Neutrophil % 76.5 % (47-70); Platelet Count 281 K/mm3 (150-450); RBC Distribution Width CV 13.8 % (11.6-14.6); RBC Distribution Width SD 41.8 fl (35.1-43.9); Red Blood Count 5.37 M/mm3 (4.6-6.2); White Blood Count 10.1 K/mm3 (4.4-11.0)
[2024-06-04 15:01] LABS: Anion Gap 5 (5-15); BUN 21 mg/dL (7-18); BUN/Creat Ratio 20.2 RATIO (10-20); Calcium,Total 9.4 mg/dL (8.5-10.1); Chloride 112 mmol/L (98-107); Creatinine, Serum 1.04 mg/dL (0.70-1.30); EST Glomerular Filtration Rate 82 mL/min (>60); Est Glom Filt Rate - Afr Amer 99 mL/min (>60); Estimated Creatinine Clearance 119.52 ml/min; Glucose 96 mg/dL (74-106); Sodium Level 141 mmol/L (136-145); Troponin-I HS 11 pg/mL (3.0-78.0)
[2024-06-04 15:50] VITALS: BP 151/90; PULSE 18; RESP 16; O2SAT 97
--- NOTE | 2024-06-04 16:15 | EDS_ITS ---
HPI History of Present Illness Chief Complaint: Palpitations Informant: patient Onset/Context/Timing Onset: Today Activity at onset: sudden Timing: Intermittent and Lasts (Less than 10 seconds) Quality: Positive for Burning Location: Left Parasternal Worsened By: Exertion Relieved By: Nothing Associated Symptoms: Positive for Lightheadedness and Acid Reflux; Negative for Nausea, Vomiting, Diaphoresis, Dyspnea, Cough, Fever or Palpitations Narrative Narrative: Patient presents with chest pain that began today. 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 Patient states he did break out into a sweat but he had just finished working out. Patient states he felt lightheaded with standing. Patient also admits to some esophageal reflux symptoms. Patient denies any palpitations. Patient denies any shortness of breath or cough. Patient denies any nausea or vomiting. Patient states his pain would last for approximately 10 seconds and then resolved. Patient states he had multiple episodes. 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 Paroxysmal atrial fibrillation Home Medications ?Medication ?Instructions ?Recorded ?Last Taken ?Type tadalafil 20 mg tablet (Cialis) 20 mg PO DAILY PRN 08/04/23 Unknown History amlodipine 5 mg tablet 5 mg PO DAILY #30 tabs 05/30/24 Unknown Rx Allergy/AdvReac Type Severity Reaction Status Date / Time No Known Allergies Allergy Verified 05/27/24 08:40 Family History Father CAD (coronary artery disease) Myocardial infarction Uncle CAD (coronary artery disease) Hx AICD Surgical History History of tonsillectomy Social History Smoking Status: Former smoker how long ago did patient quit smokin alcohol intake: current alcohol intake frequency: holidays/special occasions only Alcohol type: beer substance use type: does not use caffeine: No what type of physical activity do you participate in: other details: active lifestyle frequency: daily seatbelt use: always do you feel safe at home: Yes ROS ROS ED Constitutional Constitutional ED: Denies chills or fever(s) Eyes Eyes: Denies blurry vision or change in vision ENT ENT ED: Denies rhinorrhea or sore throat Cardiovascular Cardiovascular: Reports chest pain; Denies palpitations Respiratory/Chest Respiratory/Chest: Denies cough or dyspnea Gastrointestinal Gastrointestinal: Denies nausea or vomiting Genitourinary Genitourinary ED: Denies dysuria or hematuria Musculoskeletal Musculoskeletal: Reports back pain; Denies neck pain Integumentary Denies abscess or rash Neurologic Neurologic: Denies headache(s) or weakness Allergic/Immunologic Allergic/Immunologic ED: Denies mouth swelling or urticaria EXAM Physical Exam Const Vital Signs: 06/04/24 13:51 Temperature 97.5 F L Temperature Source Oral Pulse Rate 84 Respiratory Rate 15 Blood Pressure 144/86 H Blood Pressure Mean 105 Pulse Ox 99 Oxygen Delivery Method Room Air Positive well nourished and well developed General Appearance ED: well developed and NAD HEENT Reports moist mucous membranes Neck supple and no JVD Resp normal respiratory effort and clear to auscultation bilaterally Cardio regular rate and regular rhythm GI soft to palpation, non-tender and non-distended Extremity normal to inspection Neuro oriented x3, CN's II-XII intact bilaterally and no sensory deficits noted Sensorium / Orientation: awake and alert Motor Exam: strength 5/5 throughout Psych mental status grossly normal Heart Score History: Slightly/Non-Suspicious ECG: Normal Age: </= 45 years Risk Factors: 1 or 2 Risk Factors Troponin: </= Normal Limit Score: 1 MDM MDM MDM Narrative Medical decision making narrative: Differential diagnosis includes cardiac dysrhythmia, cardiac ischemia, pneumonia, pneumothorax, electrolyte abnormality, dehydration, and aortic dissection. EKG will be obtained to assess for cardiac dysrhythmia and cardiac ischemia. Chest x-ray will be obtained to assess for pneumonia, pneumothorax, and widened mediastinum. CBC will be obtained to assess for leukocytosis and anemia. Basic metabolic profile will be obtained to assess for electrolyte abnormality and renal function. High-sensitivity troponin will be obtained to assess for cardiac ischemia. Lab Data Attestation: I reviewed the patient's lab results. Lab results narrative: CBC was reviewed and was within normal limits. Basic metabolic profile was reviewed and was essentially within normal limits. High-sensitivity troponin was reviewed and was normal at 11. Labs: Laboratory Results - last 24 hr 06/04/24 13:55 WBC 10.1 RBC 5.37 Hgb 15.0 Hct 44.8 MCV 83.4 MCH 27.9 MCHC 33.5 RDW Std Deviation 41.8 RDW Coeff of Aleksandr 13.8 Plt Count 281 MPV 9.3 Immature Gran % (Auto) 0.300 Neut % (Auto) 76.5 H Lymph % (Auto) 16.4 L [place] % (Auto) 6.0 Eos % (Auto) 0.5 Baso % (Auto) 0.3 Absolute Neuts (auto) 7.7 Absolute Lymphs (auto) 1.66 Nucleated RBC % 0 Sodium 141 Potassium 4.0 Chloride 112 H Carbon Dioxide 24.0 Anion Gap 5 BUN 21 H Creatinine 1.04 Estim Creat Clear Calc 119.52 Est GFR (MDRD) Af Amer 99 Est GFR (MDRD) Non-Af 82 BUN/Creatinine Ratio 20.2 H Glucose 96 Calcium 9.4 Troponin I High Sens 11 Radiography Chest X-Ray - ED: 2 View, Read by ED Physician, Read by Radiologist and No Acute Disease Diagnostic Testing: Clinical Impression(s) from Imaging Studies Chest X-Ray 06/04/24 14:34 IMPRESSION: Normal x-ray examination of the chest. Electronically Signed: Crispin Perez MD at 15:42 EDT , PA and lateral chest x-ray was obtained. There are 2 views. On my independent interpretation, lung lim are clear. There is normal cardiac silhouette. Bony thorax is normal. There is no acute process noted. Radiologist also interpreted the x-ray and agrees. EKG Initial EKG: Attestation: I personally reviewed and interpreted this EKG as follows: Interpretation: Sinus Rhythm (83) and No Acute Injury Pattern Comments: EKG was obtained. On my independent interpretation, it showed a normal sinus rhythm with first-degree AV block with occasional PVCs with a rate of 83. LA interval was prolonged at 212 ms. QRS interval and QTc intervals were normal. [place] was normal. There are no acute ST or T wave changes. Prior EKG tracings: available for review Prior: Unchanged (08/04/2023) Treatment and Re-Evaluation :: Patient stated his pain had resolved upon arrival to the emergency department. Patient was advised of his findings. Patient has a HEART score of 1. Patient was advised that this is low risk for acute cardiac event. Patient was instructed to follow-up with his primary care physician in 5 to 7 days. Patient understood and was agreeable with the plan. All questions were answered. Discharge Plan Triage Chief Complaint: Palpitations ED Provider: Bassam Clay Dx/Rx/DC Orders Clinical Impression: Chest pain, Essential hypertension, History of Bumty-Wfhikzpns-Werdh (WPW) syndrome Instructions: ED Chest Pain, Uncertain Cause Prescriptions: No Action tadalafil [Cialis] 20 mg tablet 20 mg PO DAILY PRN Rx Instructions: administer approximately 30min before sexual activity; do not use more than 1 dose per 24hrs amlodipine 5 mg tablet 5 mg PO DAILY Qty: 30 11RF Primary Care Provider: Ryley Cohen Referrals: Ryley Cohen MD [Primary Care Provider] - 5-7 Days Print Language: Ethiopian Disposition Disposition: Home, Self Care
[2024-06-04 16:26] VITALS: BP 124/67; PULSE 71; RESP 15; TEMP 36.6; O2SAT 98
== END 2024-06-04 16:27 | disposition home or self-care (01) ==
PROVIDERS: Emergency Provider Emergency Medicine; PCP Family Medicine; Visit Provider Emergency Medicine
DX: R00.2 Palpitations (principal); I48.0 Paroxysmal atrial fibrillation; R07.9 Chest pain, unspecified; Z87.891 Personal history of nicotine dependence; I10 Essential (primary) hypertension; I45.6 Pre-excitation syndrome; Z79.899 Other long term (current) drug therapy
CPT/HCPCS: 71046; 80048; 84484; 85025; 93005; 99283; A4216

== ENCOUNTER 2025-01-11 08:22 | Day surgery (SDC) | payer BC, SELFPAY ==
--- NOTE | 2025-01-05 15:06 | PAT.ANESEVAL ---
Pre-Assessment Diagnosis/Proposed Procedure Planned Operative Procedure(s): COLONOSCOPY Anesthesia History Anesthesia History - child support agent: Anesthesia History - child support agent Hx Hospitalization No 01/05/25 12:10 Any Problems With Anesthesia No 01/05/25 12:10 Cholinesterase deficiency No 01/05/25 12:10 You/Your Family Experience No 01/05/25 12:10 fever (hyperthermia) with Relationship Recent Exposure to Contagious Disease Does patient have nerve No 01/05/25 12:10 stimulator Patient instructed to have device shut off --Does patient have Pacemaker or ICD? When Was Last Pacemaker Check QUESTION #4 FULL TEXT: You/Your Family Experience fever (hyperthermia) with Anesthesia Last Oral Intake Last Oral intake: Last Oral Intake NPO since Meds taken in AM with sips of water? Meds patient instructed to take am of surgery PONV PONV - child support agent: PONV - child support agent Female No 01/05/25 12:10 HX of Motion Sickness No 01/05/25 12:10 HX of N/V After Surgery No 01/05/25 12:10 Non-Smoker Yes 01/05/25 12:10 Duration of Surgery greater No 01/05/25 12:10 than 60 minutes Number of Risk Factors 1 01/05/25 12:10 PONV Score Low Risk 01/05/25 12:10 Height & Weight Height & Weight: Anesthesia: Height & Weight Height 6 ft 1 in 11/29/24 09:41 Respiratory Assessment Respiratory Assessment - child support agent: Respiratory Tract Infection Hx - child support agent Hx Respiratory Tract Infection No 01/05/25 12:10 STOP Sleep Apnea STOP Sleep Apnea - child support agent: STOP Sleep Apnea - child support agent Hx Hypertension No 01/05/25 12:10 Hx Sleep Apnea Yes 01/05/25 12:10 CPAP No: retainer at night 01/05/25 12:10 BIPAP No 01/05/25 12:10 Do you snore loudly (louder than talking or can be heard Do you often feel tired/ fatigued/ sleepy during daytime? Has anyone observed you stop breathing during sleep? STOP Results Positive 01/05/25 12:10 QUESTION #5 FULL TEXT : Do you snore loudly (louder than talking or can be heard through closed doors)? 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 Specify any problems Hx of Preganancy in last 3 N/A 01/05/25 12:10 Months Nurse Filling Out Transfusion VCHRISTIN 01/05/25 12:10 & Questions: Date: 01/05/25 01/05/25 12:10 Time: 12:12 01/05/25 12:10 Patient unable to answer at this time (ie. confused, unrespo /Reproduction History /Reproductive History - child support agent: /Reproductive Hx- child support agent Hx Now No 01/05/25 12:10 Gestational Age (in weeks): EDC: Hx Hx Para Hx Section SAB No 01/05/25 12:10 PENDING SALE TO [facility] Medical History (Updated 01/05/25 @ 12:10 by Shamika Quintero) Wears glasses Alcohol use Seizures Former smoker Sleep apnea Hypertension History of echocardiogram Cardiology follow-up encounter Hyperlipidemia Diarrhea Partial obstruction of small intestine Essential hypertension Csdnv-Wzpfhaphr-Rlwtf (WPW) syndrome Paroxysmal atrial fibrillation Home Medications ?Medication ?Instructions ?Recorded ?Last Taken ?Type tadalafil 20 mg tablet (Cialis) 20 mg PO DAILY PRN sexual activity 08/04/23 Unknown History amlodipine 5 mg tablet 5 mg PO DAILY #30 tabs 05/30/24 Unknown Rx cholecalciferol (vitamin D3) 50 50 mcg PO DAILY 01/05/25 Unknown History mcg (2,000 unit) capsule (Vitamin D3) cyanocobalamin (vitamin B-12) 1 ml PO DAILY 01/05/25 Unknown History 1,000 mcg/mL oral drops (Vitamin B-12) Allergy/AdvReac Type Severity Reaction Status Date / Time No Known Allergies Allergy Verified 01/05/25 12:00 Family History Father CAD (coronary artery disease) Myocardial infarction Uncle CAD (coronary artery disease) Hx AICD Surgical History S/P ablation operation for arrhythmia History of tonsillectomy Social History Smoking Status: Former smoker how long ago did patient quit smokin alcohol intake: current alcohol intake frequency: holidays/special occasions only Alcohol type: beer substance use type: does not use caffeine: No what type of physical activity do you participate in: other details: active lifestyle frequency: daily seatbelt use: always do you feel safe at home: Yes Audit: Pertinent Findings Pertinent Findings EKG Perinent findings: June 04, 2024. Sinus rhythm with first-degree AV block with occasional PVCs. Echo (EF%) pertinent findings: September 02, 2024. Ejection fraction is 55%. No aortic valve stenosis. Distal ascending aorta is 3.8 cm. Consult pertinent findings: May 27, 2024. Orville GARCÍA. 1. Atrlm-Qpdqttgnu-Xlxvt syndrome-chronic.-Status post ablation in 2016. Denies recurrence. 2. Paroxysmal atrial fibrillation?chronic-denies recent recurrence. He is [id number] score is 0 without hypertension and a 1 with hypertension. 3. Hypertension-elevated in the office today. He states it is lower at home. Patient is to monitor and notify office if elevated. 4. Family history of coronary artery disease-his coronary calcium score was 0. Continue with aggressive risk factor and lifestyle modifications 5. Lung nodule 6 to 7 mm in left lung base. Followed by pulmonology. 6. Thoracic ascending aortic aneurysm?4 cm in diameter?continue to monitor. Recommendation Anesthesia Recommendation Anesthesia recommendation: OPTIMIZED for anesthesia
[2025-01-11] VITALS (9 sets, daily range): BP systolic 106–138; BP diastolic 69–95; PULSE 57–80; RESP 16–18; TEMP 36.3–37.1; O2SAT 93–100; BMI 32.5
--- NOTE | 2025-01-11 08:57 | PCM.PRE.AN2 ---
ASA Classification* ASA Classification ASA Classification: 2 Assessment & Plan Anesthesia* Anesthesia Assessment Anesthesia Assessment: Discussed sedation and/or anesthesia options, risks, benefits, and alternatives with patient/parents/legal guardian/POA. Questions invited. The patient/parents/legal guardian/POA seems to understand and agrees to proceed with anesthesia plan. Reviewed the physical assessment, medical history, allergy history and patient home medications list prior to surgery/procedure/anesthetic and documented any changes. Performed airway and anesthesia risk assessments. Anesthesia Type Anesthesia Type: MAC Anesthesia Focused Assessment* Temperature: 97.8 F Pulse Rate: 80 Blood Pressure: 138/95 Respiratory Rate: 18 Pulse Ox: 100 Airway Assessment Mouth opens: >3 cm Mallampati Score: II Focused Labs Anesthesia Preop lab: CBC WBC 10.1 K/mm3 (4.4-11.0) 06/04/24 13:55 06/04/24 RBC 5.37 M/mm3 (4.6-6.2) 06/04/24 13:55 06/04/24 Hgb 15.0 g/dL (13.0-16.5) 06/04/24 13:55 06/04/24 Hct 44.8 % (40-54) 06/04/24 13:55 06/04/24 Plt Count 281 K/mm3 (150-450) 06/04/24 13:55 06/04/24 CHEMISTRY Potassium 4.0 mmol/L (3.5-5.1) 06/04/24 13:55 06/04/24 Sodium 141 mmol/L (136-145) 06/04/24 13:55 06/04/24 BUN 21 mg/dL (7-18) H 06/04/24 13:55 06/04/24 Creatinine 1.04 mg/dL (0.70-1.30) 06/04/24 13:55 06/04/24 Glucose 96 mg/dL (74-106) 06/04/24 13:55 06/04/24 TSH 1.64 uIU/mL (0.358-3.74) 12/03/20 07:58 12/03/20 COAG Pre-Assessment Diagnosis/Proposed Procedure Planned Operative Procedure(s): COLONOSCOPY Anesthesia History Anesthesia History - account services coordinator: Anesthesia History - account services coordinator Hx Hospitalization No 01/05/25 12:10 Any Problems With Anesthesia No 01/05/25 12:10 Cholinesterase deficiency No 01/05/25 12:10 You/Your Family Experience No 01/05/25 12:10 fever (hyperthermia) with Relationship Recent Exposure to Contagious No 01/11/25 08:48 Disease Does patient have nerve No 01/05/25 12:10 stimulator Patient instructed to have device shut off --Does patient have Pacemaker No 01/11/25 08:48 or ICD? When Was Last Pacemaker Check QUESTION #4 FULL TEXT: You/Your Family Experience fever (hyperthermia) with Anesthesia Last Oral Intake Last Oral intake: Last Oral Intake NPO since 19:30 01/11/25 08:48 Meds taken in AM with sips of Yes 01/11/25 08:48 water? Meds patient instructed to amlodipine 01/11/25 08:48 take am of surgery PONV PONV - account services coordinator: PONV - account services coordinator Female No 01/05/25 12:10 HX of Motion Sickness No 01/05/25 12:10 HX of N/V After Surgery No 01/05/25 12:10 Non-Smoker Yes 01/05/25 12:10 Duration of Surgery greater No 01/05/25 12:10 than 60 minutes Number of Risk Factors 1 01/05/25 12:10 PONV Score Low Risk 01/05/25 12:10 Height & Weight Height & Weight: Anesthesia: Height & Weight Height 6 ft 01/11/25 08:48 Weight: 109 kg 01/11/25 08:48 Body Mass Index (BMI) 32.5 01/11/25 08:48 Respiratory Assessment Respiratory Assessment - account services coordinator: Respiratory Tract Infection Hx - account services coordinator Hx Respiratory Tract Infection No 01/05/25 12:10 STOP Sleep Apnea STOP Sleep Apnea - account services coordinator: STOP Sleep Apnea - account services coordinator Hx Hypertension No 01/05/25 12:10 Hx Sleep Apnea Yes 01/05/25 12:10 CPAP No: retainer at night 01/05/25 12:10 BIPAP No 01/05/25 12:10 Do you snore loudly (louder than talking or can be heard Do you often feel tired/ fatigued/ sleepy during daytime? Has anyone observed you stop breathing during sleep? STOP Results Positive 01/05/25 12:10 QUESTION #5 FULL TEXT : Do you snore loudly (louder than talking or can be heard through closed doors)? 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 Specify any problems Hx of Preganancy in last 3 N/A 01/05/25 12:10 Months Nurse Filling Out Transfusion VCHRISTIN 01/05/25 12:10 & Questions: Date: 01/05/25 01/05/25 12:10 Time: 12:12 01/05/25 12:10 Patient unable to answer at this time (ie. confused, unrespo /Reproduction History /Reproductive History - account services coordinator: /Reproductive Hx- account services coordinator Hx Now No 01/05/25 12:10 Gestational Age (in weeks): EDC: Hx Hx Para Hx Section SAB No 01/05/25 12:10 PFS Medical History Wears glasses Alcohol use Seizures Former smoker Sleep apnea Hypertension History of echocardiogram Cardiology follow-up encounter Hyperlipidemia Diarrhea Partial obstruction of small intestine Essential hypertension Otofx-Vbnlzekjy-Umler (WPW) syndrome Paroxysmal atrial fibrillation Home Medications ?Medication ?Instructions ?Recorded ?Last Taken ?Type tadalafil 20 mg tablet (Cialis) 20 mg PO DAILY PRN sexual activity 08/04/23 Unknown History amlodipine 5 mg tablet 5 mg PO DAILY #30 tabs 05/30/24 01/11/25 06:50 Rx cholecalciferol (vitamin D3) 50 50 mcg PO DAILY 01/05/25 Unknown History mcg (2,000 unit) capsule (Vitamin D3) cyanocobalamin (vitamin B-12) 1 ml PO DAILY 01/05/25 Unknown History 1,000 mcg/mL oral drops (Vitamin B-12) Allergy/AdvReac Type Severity Reaction Status Date / Time No Known Allergies Allergy Verified 01/11/25 08:46 Family History Father CAD (coronary artery disease) Myocardial infarction Uncle CAD (coronary artery disease) Hx AICD Surgical History S/P ablation operation for arrhythmia History of tonsillectomy Social History Smoking Status: Former smoker how long ago did patient quit smokin alcohol intake: current alcohol intake frequency: holidays/special occasions only Alcohol type: beer substance use type: does not use caffeine: No what type of physical activity do you participate in: other details: active lifestyle frequency: daily seatbelt use: always do you feel safe at home: Yes Review of Systems (Anesthesia) ROS Narrative System reviewed and no additional complaints, except as documented.
--- NOTE | 2025-01-11 09:32 | H&P.OPEN ---
HPI - General General Date of Service: 01/11/25 HPI Narrative EMILIANO MANN, is a 44 M who presents for a screening colonoscopy. Patient denies any changes with his umbilical hernia since office visit denies any changes in his bowels. Patient does admit to having hemorrhoids does have 1 that comes out and goes back in denies any pain or other symptoms. 11/29/2024 office visit HPI HPI: 44-year-old male for colonoscopy screening and umbilical hernia. Patient denies any family history of colon cancer. Patient never had previous colonoscopy. Patient has bowel movements daily denies any blood. Patient denies any chronic abdominal pain/nausea/vomiting/reflux. Patient states he has noticed umbilical hernia that does bulge out and sometimes he can feel that is coming out more than at other times. Patient denies any abdominal surgeries previously. [facility] Medical History Wears glasses Alcohol use Seizures Former smoker Sleep apnea Hypertension History of echocardiogram Cardiology follow-up encounter Hyperlipidemia Diarrhea Partial obstruction of small intestine Essential hypertension Zqqyy-Qwgwcjxrx-Fjnwa (WPW) syndrome Paroxysmal atrial fibrillation Home Medications ?Medication ?Instructions ?Recorded ?Last Taken ?Type tadalafil 20 mg tablet (Cialis) 20 mg PO DAILY PRN sexual activity 08/04/23 Unknown History amlodipine 5 mg tablet 5 mg PO DAILY #30 tabs 05/30/24 01/11/25 06:50 Rx cholecalciferol (vitamin D3) 50 50 mcg PO DAILY 01/05/25 Unknown History mcg (2,000 unit) capsule (Vitamin D3) cyanocobalamin (vitamin B-12) 1 ml PO DAILY 01/05/25 Unknown History 1,000 mcg/mL oral drops (Vitamin B-12) Allergy/AdvReac Type Severity Reaction Status Date / Time No Known Allergies Allergy Verified 01/11/25 08:46 Family History Father CAD (coronary artery disease) Myocardial infarction Uncle CAD (coronary artery disease) Hx AICD Surgical History S/P ablation operation for arrhythmia History of tonsillectomy Social History Smoking Status: Former smoker how long ago did patient quit smokin alcohol intake: current alcohol intake frequency: holidays/special occasions only Alcohol type: beer substance use type: does not use caffeine: No what type of physical activity do you participate in: other details: active lifestyle frequency: daily seatbelt use: always do you feel safe at home: Yes Past Medical/Surgical History Planned Operation Planned Operative Procedure(s): COLONOSCOPY Previous Hospitalizations/Surgeries HX Hospitalizations: No Any Problems With Anesthesia: No You/Your Family Experience Fever (Hyperthermia) With Anes: No Cholinesterase deficiency: No Cardiovascular Hx Hypertension: No Respiratory Hx Sleep Apnea: Yes CPAP: No (retainer at night) BIPAP: No Hx Respiratory Tract Infection/Cold (presently): No Result (for STOP score): Positive Smoking Status: Former smoker Neurological Does patient have nerve stimulator: No Reproduction : No Miscellaneous Recent Exposure to Contagious Disease: No Allergies No Known Allergies Allergy (Verified 01/11/25 08:46) Discharge Is Pt Admitted From a Intermediate, or a Long Term: No After D/C, Where Do you Plan to Go: Return Home Vital Signs Vital Signs Vital Signs: 01/11/25 08:48 01/11/25 08:48 01/11/25 08:58 Temperature 97.8 F 97.8 F Temperature Source Temporal Pulse Rate 80 80 Respiratory Rate 18 18 Respiratory Pattern Normal Blood Pressure 138/95 H 138/95 H Blood Pressure Mean 109 Blood Pressure Source Monitor Blood Pressure Position Sitting Blood Pressure Location Left Arm Pulse Ox 100 100 Oxygen Delivery Method Room Air Weight Weight: 240 lb 4.862 oz Body Mass Index (BMI) 32.5 Physical Exam Const alert, oriented x3 and no apparent distress HEENT normocephalic and head/scalp atraumatic Resp normal respiratory effort Cardio regular rate GI soft to palpation and non-tender; Negative for non-distended Palpation: Negative for guarding Extremity no clubbing, cyanosis or edema Skin no rashes or lesions noted Neuro CN's II-XII intact bilaterally Psych mental status grossly normal Assessment & Plan Assessment/Plan (1) Colon cancer screening: PLAN: Plan Did discuss with patient that if his hemorrhoid is amendable to banding may also do that at this time however if it does communicate with external banding would not be an option. Surgery Risks - Colonoscopy I discussed with the patient the risks of the procedure: Yes Risks Include but are not Limited To: Risks include but are not limited to: Bleeding, perforation requiring further surgery, inability to complete colonoscopy requiring barium enema.
--- NOTE | 2025-01-11 09:45 | COLBX_PTH ---
PATIENT: EMILIANO MANN LOC: EN U#:[id number] AGE/SX: 44/M ROOM: RE01/11/[address]: Dr. Melva Carter MD : 1980 BED: DIS: 01/11/2025 SPEC #: [id number] RECD: 01/11/25 11:42 STATUS: ROLY REShade #: [id number] MITCHELL: 01/11/25 09:[address]: Melva Carter DEPT: SURGICAL PATHOLOGY RECD BY: Terence Huston ENTERED: 01/11/25 11:43 SP TYPE: COLON BX OTHR DR: Dr. Ryley Cohen MD Tissues: A - Ileum, NOS Procedures: Surgery Specimen Level IV HEADER OPERATION: Colonoscopy with biopsy PRE-OP DIAGNOSIS: Colon cancer screening TISSUE SUBMITTED: A- Ileocecal valve polyp biopsy MICROSCOPIC DIAGNOSIS A. Colon, ileocecal valve, polyp, biopsy: * Tubular adenoma. MICROSCOPIC DESCRIPTION Slides are reviewed. GROSS DESCRIPTION A. Received in formalin in a container labeled with the patient's name, date of , and ileocecal valve polyp biopsy are multiple flores-pink fragments of mucosal tissue measuring 1.0 x 0.8 x 0.3 cm in aggregate. Submitted in toto in A1. [facility] 01-11-2025 CPT:80120
--- NOTE | 2025-01-11 10:59 | PCM.POST.ANE ---
Anesthesia: Postop Eval I Current Vital Signs Temperature: 97.9 F Pulse Rate: 79 Blood Pressure: 111/78 Respiratory Rate: 16 Pulse Ox: 95 Oxygen Delivery Method: Room Air Assessment Airway patent: Yes Spontaneous unlabored respirations: Yes Mental status: Asleep nausea: No Vomiting: No Anesthesia Complication: No Fluid Hydration Crystalloid volume administer (ml): 115 Total IV fluid infused: 115 Progress Note Anesthesia document: Postop Eval 1 completed: Yes
--- NOTE | 2025-01-11 11:01 | OP.COLON_ITS ---
Patient Name: Richy Sue Procedure Date: 01/11/2025 10:14 AM Date of : 1980 Age: 44 Procedure: Colonoscopy Indications: Screening for colorectal malignant neoplasm Providers: Melva Carter MD Referring MD: Clark Cohen Medicines: Monitored Anesthesia Care Patient Profile: This is a 44 year old male. Last Colonoscopy: none. The patient's first colonoscopy is today. Complications: No immediate complications. Procedure: Pre-Anesthesia Assessment: - Prior to the procedure, a History and Physical was performed, and patient medications and allergies were reviewed. The patient's tolerance of previous anesthesia was also reviewed. The risks and benefits of the procedure and the sedation options and risks were discussed with the patient. All questions were answered, and informed consent was obtained. Prior Anticoagulants: The patient has taken no anticoagulant or antiplatelet agents. ASA Grade Assessment: Per anesthesia. After reviewing the risks and benefits, the patient was deemed in satisfactory condition to undergo the procedure. After I obtained informed consent, the scope was passed under direct vision. Throughout the procedure, the patient's blood pressure, pulse, and oxygen saturations were monitored continuously. The Colonoscope was introduced through the anus and advanced to the cecum, identified by the appendiceal orifice, ileocecal valve and palpation. The colonoscopy was performed without difficulty. The patient tolerated the procedure well. The quality of the bowel preparation was good. Scope In: 10:23:41 AM Scope Withdrawal Time 0 hours 19 minutes 17 seconds Scope Out: 10:48:05 AM Total Procedure Duration Time 0 hours 24 minutes 24 seconds Findings: Hemorrhoids were found on perianal exam. Non-bleeding internal hemorrhoids were found. The hemorrhoids were Grade II (internal hemorrhoids that prolapse but reduce spontaneously). Two sessile polyps were found in the ileocecal valve. The polyps were less than 5 mm in size. These polyps were removed with a cold biopsy forceps. Resection and retrieval were complete. The exam was otherwise without abnormality on direct and retroflexion views. Impression: - Hemorrhoids found on perianal exam. - Non-bleeding internal hemorrhoids. - Two less than 5 mm polyps at the ileocecal valve, removed with a cold biopsy forceps. Resected and retrieved. - The examination was otherwise normal on direct and retroflexion views. Recommendation: - Discharge patient to home. - Resume previous diet. - Continue present medications. - Await pathology results. - Repeat colonoscopy in 5 years for surveillance based on pathology results. - Avoid prolonged times on the toilet if not going to get off the toilet do not use phone on the toilet and avoid straining as this makes hemorrhoids worse. Procedure Code(s): --- Professional --- 31732, PT, Colonoscopy, flexible; with biopsy, single or multiple Diagnosis Code(s): --- Professional --- Z12.11, Encounter for screening for malignant neoplasm of colon K64.1, Second degree hemorrhoids D12.0, Benign neoplasm of cecum CPT copyright 2021 [employer]. All rights reserved. The codes documented in this report are preliminary and upon nail maker review may be revised to meet current compliance requirements. MD Melva Carrasco MD 01/11/2025 11:00:28 AM This report has been signed electronically. Number of Addenda: 0 Note Initiated On: 01/11/2025 10:14 AM
--- NOTE | 2025-01-11 11:01 | OP.CCLET_ITS ---
01/11/2025 Clark Cohen [address] [place] [address] Re : Colonoscopy procedure for Richy Sue Dear Dr. Cohen This procedure was performed on Saturday, January 11, 2025. My impressions and recommendations are as follows: Impressions : - Hemorrhoids found on perianal exam. - Non-bleeding internal hemorrhoids. - Two less than 5 mm polyps at the ileocecal valve, removed with a cold biopsy forceps. Resected and retrieved. - The examination was otherwise normal on direct and retroflexion views. Recommendations : - Discharge patient to home. - Resume previous diet. - Continue present medications. - Await pathology results. - Repeat colonoscopy in 5 years for surveillance based on pathology results. - Avoid prolonged times on the toilet if not going to get off the toilet do not use phone on the toilet and avoid straining as this makes hemorrhoids worse. My findings are described in the full procedure note, which is enclosed. If I can be of further assistance, please feel free to contact me at Doctor phone number(s): , Work: . Sincerely, MD Melva Carrasco MD 01/11/2025 11:00:28 AM This report has been signed electronically.
--- NOTE | 2025-01-11 11:12 | PCM.POSTANE2 ---
Anesthesia Postop Eval I Sum Postop Eval Completion status Anesthesia document: Postop Eval 1 completed: Yes Anesthesia Postop Eval I Summary Anesthesia Postop Eval I Summary: Anesthesia Postop Eval I: Assessment Summary Airway patent Yes 01/11/25 10:59 [email or web address] Spontaneous unlabored Yes 01/11/25 10:59 [email or web address] respirations Mental status Asleep 01/11/25 10:59 [email or web address] nausea No 01/11/25 10:59 [email or web address] Vomiting No 01/11/25 10:59 [email or web address] Anesthesia Postop Eval I: Fluid Summary Crystalloid volume administer 115 01/11/25 10:59 [email or web address] (ml) Colloids volume administered ( ml) Blood Product volume administered (ml) Total IV fluid infused 115 01/11/25 10:59 [email or web address] Anesthesia Postop Eval I: Summary Notes Anesthesia Complication No 01/11/25 10:59 [email or web address] Anesthesia Complication Comment: Post-operative progress note Anesthesia: Postop Eval II Evaluation Mental status: Awake Pain Level: 0 nausea: No Vomiting: No
--- NOTE | 2025-01-11 12:19 | SUR.PHASEII ---
pt called with info about supp. that dr elizabeth called into pharmacy- he will come and get a little later today. denies questions.
== END 2025-01-11 11:55 | disposition home or self-care (01) ==
LOC: EN 08:22 → AC 08:23
PROVIDERS: PCP Family Medicine; Referring Provider Family Medicine; Visit Provider Surgery
PROC: 0DJD8ZZ Inspection of Lower Intestinal Tract, Via Natural or Artificial Opening Endoscopic (ICD-10-PCS; CPT 45378; principal; 2025-01-11 09:40)
DX: Z12.11 Encounter for screening for malignant neoplasm of colon (principal); D12.0 Benign neoplasm of cecum; Z87.891 Personal history of nicotine dependence; E78.5 Hyperlipidemia, unspecified; I10 Essential (primary) hypertension; K42.9 Umbilical hernia without obstruction or gangrene; K64.1 Second degree hemorrhoids
CPT/HCPCS: 45380; 88305; A4216; J2405

== ENCOUNTER → 2025-02-02 | Outpatient (CLI) | payer BC, SELFPAY ==
--- NOTE | 2025-02-02 08:50 | CT_ITS ---
PROCEDURE: CHEST WITHOUT CONTRAST ([facility]), 02/02/2025 REASON FOR EXAM: R SIDED NODULES TECHNIQUE: CT chest was performed without IV contrast. Multiplanar reformats were generated. RADIATION DOSE SUMMARY: CTDlvol: 17.89 mGy DLP: 648.28 mGycm One or more dose reduction techniques were used (e.g., Automated exposure control, adjustment of the mA and/or kV according to patient size, use of iterative reconstruction technique). COMPARISON: 03/01/2024 FINDINGS: Note that evaluation of the vasculature, kavita, and soft tissues is limited in the absence of IV contrast. Heart/pericardium: Unremarkable. Aorta: Unremarkable. Pulmonary arteries: Normal in caliber. Lymph nodes: Unremarkable. Lungs/pleura: Minimal atelectasis/scarring. Similar fissural likely intrapulmonary lymph nodes on the RIGHT. Similar 3 mm LEFT lower lobe micronodule (series 4 image 95). Similar 9 x 5 mm subpleural nodule in the LEFT lung base abutting the diaphragm (image 93).. Airways: Unremarkable. Chest wall: Unremarkable. Upper abdomen: Borderline mild splenomegaly, 13.0 cm. Spleen is partially imaged. Musculoskeletal: Unremarkable. CT/Chest without Contrast IMPRESSION: 1. Similar nodules up to 7 mm average axial diameter. Recommend CT chest in 6- 12 months per the Fleischner recommendations to complete two years of surveillance, presuming no history of known malignancy or immunosuppression. 2. Borderline mild splenomegaly. 3. Additional description as above. Reading Location: [id number]
== END | disposition home or self-care (01) ==
LOC: CT 08:27
PROVIDERS: PCP Family Medicine; Referring Provider Internal Medicine Pulmonary Disease; Visit Provider Internal Medicine Pulmonary Disease
DX: R91.1 Solitary pulmonary nodule (principal)
CPT/HCPCS: 71250

== ENCOUNTER → 2025-07-17 | Outpatient (CLI) | payer BC, SELFPAY ==
[2025-07-17 11:54] LABS: AST(SGOT) 19 U/L (<=37); Alanine Aminotransfer ALT/SGPT 29 U/L (<=46); Albumin, Serum 4.8 g/dL (3.5-5.0); Alkaline Phosphatase 73 U/L (40-129); Bilirubin, Direct 0.20 mg/dL (0.00-0.30); Cholesterol 221 mg/dL (<=200); Globulin 3.1 g/dL (2.2-4.2); Low Density Lipoprotein Calc. 146 mg/dL; Triglycerides 161 mg/dL; Very Low Density Lipoprotein 32 mg/dL (5-40); cholesterol:hdl ratio screen 5.16
== END | disposition home or self-care (01) ==
LOC: LAB 10:36
PROVIDERS: PCP Family Medicine; Referring Provider Nurse Practitioner Gerontology; Visit Provider Nurse Practitioner Gerontology
DX: E78.5 Hyperlipidemia, unspecified (principal)
CPT/HCPCS: 36415; 80061; 80076